=== PATIENT | female | born 1955 | race Caucasian/White ===

== ENCOUNTER 2016-12-27 16:25 | Emergency (ER) | payer BC ==
[~2016-12-27] VITALS: Ht 165.1 cm; Wt 115.0 kg
[~2016-12-27 16:25] MED LIST: ALL5TAB5 PO; CIPR500T4 PO; FLUT1SPR9; LISI-360 PO; PRAV40TA2 PO; RANI150 PO; SUCR1TAB PO
[2016-12-27] MEDS ORDERED: SODIUM CHLOR 0.9% 1000 ML INJ 1,000 ML IV ONE (16:33)
[2016-12-27 16:40] VITALS: BP 101/58; PULSE 65; RESP 22; TEMP 98.7; O2SAT 97
[2016-12-27] MEDS ORDERED: SODIUM CHLORIDE 0.9% FLUSH 10 ML FLUSH IVF PRN (16:45)
--- NOTE | 2016-12-27 17:13 | RADRPT ---
EXAM DATE/TIME: 12/27/2016 16:56 [facility] COMPARISON: CHEST SINGLE AP, October 13, 2015, 16:38. INDICATIONS : Short of breath. MEDICAL HISTORY : None. SURGICAL HISTORY : None. ENCOUNTER: Initial ACUITY: 1 day PAIN SCORE: 0/10 LOCATION: Bilateral chest FINDINGS: There is advanced cardiomegaly. The lungs demonstrate chronic appearing interstitial changes but are otherwise clear. There is no pleural effusion. The visualized bony structures are grossly intact. CONCLUSION: 1. Advanced cardiomegaly. Stable compared to previous exam. Mark Roberts MD on December 27, 2016 at 17:11 Board Certified Radiologist. This report was verified electronically.
[2016-12-27 17:29] LABS: AUTOMATED NEUTROPHIL # 6.8 TH/MM3 (1.8-7.7); BASOPHIL % 0.1 % (0.0-2.0); EOSINOPHIL # 0.1 TH/MM3 (0-0.4); EOSINOPHIL % 0.6 % (0.0-4.0); HEMATOCRIT 38.5 % (35.0-46.0); HEMO FLAGS DIFF FINAL; LYMPH % 13.1 % (9.0-44.0); LYMPHOCYTE # 1.1 TH/MM3 (1.0-4.8); MEAN CELL VOLUME 91.2 FL (80.0-100.0); MEAN CORPUSCULAR HEMOGLOBIN 30.3 PG (27.0-34.0); MEAN CORPUSCULAR HGB CONC 33.2 % (32.0-36.0); NEUT % 80.2 % (16.0-70.0); PLATELET COUNT 209 TH/MM3 (150-450); RED BLOOD COUNT 4.22 MIL/MM3 (4.00-5.30); WHITE BLOOD COUNT 8.4 TH/MM3 (4.0-11.0)
[2016-12-27 17:30] LABS: BLOOD, URINE NEG (NEG); GLUCOSE,URINE NEG (NEG); KETONE, URINE NEG (NEG); NITRITE,URINE NEG (NEG); PH, URINE 7.5 (5.0-8.5); SQUAMOUS EPITHELIAL CELL URINE 1 /hpf (0-5); URINE COLOR LIGHT-YELLOW (YELLW/STRAW)
[2016-12-27 17:34] LABS: COMMENT (UR) CULT NOT INDICATED; CULTURE IF INDICATED CULT NOT INDICATED
[2016-12-27 17:38] LABS: BICARBONATE 28.8 MEQ/L (21.0-32.0); POTASSIUM 3.9 MEQ/L (3.5-5.1)
[2016-12-27 17:39] VITALS: BP_SYST 109; BP_SYST 112; BP_SYST 117; BP_DIAS 68; BP_DIAS 69; RESP 17
[2016-12-27] MEDS ORDERED: PRAV40TA2 PO (17:43)
[2016-12-27] MEDS ORDERED: LISI10TA3 PO (17:43)
[2016-12-27] MEDS ORDERED: ZANT150T2 PO (17:43)
[2016-12-27] MEDS ORDERED: ASPI81CH CHEW (17:43)
[2016-12-27] MEDS ORDERED: TRIA1SPR6 EACH NARE (17:43)
[2016-12-27] MEDS ORDERED: CETI10 PO (17:43)
--- NOTE | 2016-12-27 18:28 | PD ---
HPI Chief Complaint: Syncope/Near-Syncope Time Seen by Provider: 16:33 Travel History International Travel<30 days: No Contact w/Intl Traveler<30days: No Traveled to known affect area: No History of Present Illness HPI 61 yo F arrives by ems. pt completed ale class in very hot room. reports dizziness and nausea. ems notes bp on scene 80/60. no tachycardia. no fever/ tachypnea. no cp or sob. pt received 1L ns and reports feeling much better. no fever/chills. No similar prior. Pt reports drinking normal amount of water for ale class. No additional complaint. pt recently evaluated by PMD with good results. PFSH Past Medical History Atrial Fibrillation: Yes Cardiovascular Problems: Yes Hypertension: Yes Menopausal: Yes Past Surgical History Appendectomy: Yes Cardiac Surgery: Yes (ablation) Other Surgery: Yes (hernia; rectocele) Social History Alcohol Use: Yes (rarely) Tobacco Use: No Substance Use: No Allergies-Medications (Allergen,Severity, Reaction): Coded Allergies: Sulfa (Sulfonamide Antibiotics) (Unverified Allergy, Severe, Rash, 11/15/16 ) morphine (Unverified Allergy, Severe, Rash, 11/15/16) Reported Meds & Prescriptions Reported Meds & Active Scripts Active Reported Zantac (Ranitidine HCl) 150 Mg Tab 150 Mg PO HS Nasacort Allergy 24Hr Nasal (Triamcinolone Nasal) 55 Mcg Spr 1 [place] EACH NARE HS Cetirizine (Cetirizine HCl) 10 Mg Tab 10 Mg PO DAILY Aspirin 81 Mg Chew 81 Mg CHEW HS Pravastatin 40 Mg Tab 40 Mg PO HS Lisinopril 10 Mg Tab 10 Mg PO DAILY Review of Systems Except as stated in HPI: all other systems reviewed are Neg General / Constitutional: No: Fever Physical Exam Narrative GENERAL: 61 yo F, NAD, WNWD SKIN: Warm and dry. HEAD: Atraumatic. Normocephalic. EYES: Pupils equal and round. No scleral icterus. No injection or drainage. ENT: No nasal bleeding or discharge. Mucous membranes pink and moist. NECK: Trachea midline. No JVD. CARDIOVASCULAR: Regular rate and rhythm. RESPIRATORY: No accessory muscle use. Clear to auscultation. Breath sounds equal bilaterally. GASTROINTESTINAL: Abdomen soft, non-tender, nondistended. Hepatic and splenic margins not palpable. MUSCULOSKELETAL: Extremities without clubbing, cyanosis, or edema. No obvious deformities. NEUROLOGICAL: Awake and alert. No obvious cranial nerve deficits. Motor grossly within normal limits. Five out of 5 muscle strength in the arms and legs. Normal speech. PSYCHIATRIC: Appropriate mood and affect; insight and judgment normal. Data Data Last Documented VS Vital Signs Date Time Temp Pulse Resp B/P (MAP) Pulse Ox O2 Delivery O2 Flow Rate FiO2 12/27/16 17:39 69 17 109/69 (82) 66 17 112/68 (83) 70 17 117/68 (84) 12/27/16 17:36 98 Room Air 12/27/16 16:40 98.7 VS reviewed Orders Orders Basic Metabolic Panel (Bmp) (12/27/16 16:33) Complete Blood Count With Diff (12/27/16 16:33) Urinalysis - C+S If Indicated (12/27/16 16:33) Chest, Single Ap (12/27/16 16:33) Blood Glucose (12/27/16 16:33) Ecg Monitoring (12/27/16 16:33) Iv Access Insert/Monitor (12/27/16 16:33) Oximetry (12/27/16 16:33) Sodium Chloride 0.9% Flush (Ns Flush) (12/27/16 16:45) Sodium Chlor 0.9% 1000 Ml Inj (Ns 1000 M (12/27/16 16:33) Orthostatic Vital Signs (12/27/16 16:33) Labs Laboratory Tests Test 12/27/16 16:35 12/27/16 16:53 White Blood Count 8.4 TH/MM3 Red Blood Count 4.22 MIL/MM3 Hemoglobin 12.8 GM/DL Hematocrit 38.5 % Mean Corpuscular Volume 91.2 FL Mean Corpuscular Hemoglobin 30.3 PG Mean Corpuscular Hemoglobin Concent 33.2 % Red Cell Distribution Width 13.0 % Platelet Count 209 TH/MM3 Mean Platelet Volume 8.7 FL Neutrophils (%) (Auto) 80.2 % Lymphocytes (%) (Auto) 13.1 % Monocytes (%) (Auto) 6.0 % Eosinophils (%) (Auto) 0.6 % Basophils (%) (Auto) 0.1 % Neutrophils # (Auto) 6.8 TH/MM3 Lymphocytes # (Auto) 1.1 TH/MM3 Monocytes # (Auto) 0.5 TH/MM3 Eosinophils # (Auto) 0.1 TH/MM3 Basophils # (Auto) 0.0 TH/MM3 CBC Comment DIFF FINAL Differential Comment Blood Urea Nitrogen 14 MG/DL Creatinine 1.03 MG/DL Random Glucose 99 MG/DL Calcium Level 8.7 MG/DL Sodium Level 142 MEQ/L Potassium Level 3.9 MEQ/L Chloride Level 107 MEQ/L Carbon Dioxide Level 28.8 MEQ/L Anion Gap 6 MEQ/L Estimat Glomerular Filtration Rate 54 ML/MIN Urine Color LIGHT-YELLOW Urine Turbidity CLEAR Urine pH 7.5 Urine Specific [place] 1.008 Urine Protein TRACE mg/dL Urine Glucose (UA) NEG mg/dL Urine Ketones NEG mg/dL Urine Occult Blood NEG Urine Nitrite NEG Urine Bilirubin NEG Urine Urobilinogen LESS THAN 2.0 MG/DL Urine Leukocyte Esterase SMALL Urine RBC LESS THAN 1 /hpf Urine WBC 2 /hpf Urine Squamous Epithelial Cells 1 /hpf Microscopic Urinalysis Comment CULT NOT INDICATED MDM Medical Decision Making Medical Screen Exam Complete: Yes Emergency Medical Condition: Yes Medical Record Reviewed: Yes Differential Diagnosis hypotension, hypovolemia, electrolyte imbalance, arrhythmia, anemia, medication side effect Narrative Course ekg sinus, rate 65, normal axis CBC & BMP Diagram 12/27/16 16:35 Calcium Level 8.7 Last 24 hours Impressions Chest X-Ray 12/27/16 1633 Signed Impressions: Service Date/Time: Tuesday, December 27, 2016 16:56 - CONCLUSION: 1. Advanced cardiomegaly. Stable compared to previous exam. Mark Roberts MD The patient is resting comfortably and feels better, is alert and in no distress. The patients results and examination findings were discussed. The repeat examination is unremarkable and benign. The history, exam, diagnostic testing, and current condition do not suggest any significant pathology to warrant further testing, continued ED treatment, admission, or surgical evaluation at this point. The vital signs have been stable. The patient does not have uncontrollable pain, intractable vomiting, or other significant symptoms. The patient's condition is stable and appropriate for discharge. The patient will pursue further outpatient evaluation with a primary care physician or other designated or consulting physician as indicated in the discharge instructions. The patient expressed understanding and was agreeable with this plan. Diagnosis Primary Impression: Syncope, near Additional Impression: Hypotension Qualified Codes: I95.9 - Hypotension, unspecified Referrals: Kit Mcdonald MD call for appointment Additional Instructions: You have a choice when it comes to health care, and we are glad that you chose [facility]. Hopefully, we have met your expectations on today's visit. You are welcome to return to [facility] at any time, as we are committed to meeting the health care needs of our community. Med/Other Pt SpecificInfo: No Change to Meds Disposition: 01 DISCHARGE HOME Condition: Stable Mark Paez MD Dec 27, 2016 18:28
[2016-12-27 19:19] VITALS: BP 117/68
--- NOTE | 2016-12-28 15:14 | EKG ---
Date Performed: 12/27/2016 Time Performed: 16:42:04 PTAGE: 61 years EKG: Sinus rhythm WITH MARKED SINUS ARRHYTHMIA BORDERLINE ECG NO PREVIOUS TRACING DOCTOR: Carlos Linares Interpretating Date/Time 12/28/2016 15:12:19
== END 2016-12-27 21:09 | disposition home or self-care (01) ==
LOC: NEPC 16:25
DX: R55 Syncope and collapse (principal); I95.9 Hypotension, unspecified; I48.91 Unspecified atrial fibrillation; I10 Essential (primary) hypertension
CPT/HCPCS: 71010; 80048; 81001; 85025; 93005; 96360; 99284; J7030